=== PATIENT | female | born 1950 | race Caucasian/White ===

== ENCOUNTER 2020-05-07 07:04 | Outpatient (CLI) | payer MEDICARE, SELFPAY ==
[2020-05-07 07:40] LABS: Basophils Absolute Auto 0.1 K/mm3 (0.0-0.1); Basophils Percent Auto 1.1 % (0.2-1.2); Eosinophils Absolute Auto 0.2 K/mm3 (0-0.3); Eosinophils Percent Auto 2.1 % (0-4.4); Hematocrit 43.5 % (37.0-47.0); Hemoglobin 14.9 g/dL (12.0-15.0); Immature Granulocyte Absolute 0.01 K/mm3 (0.00-0.031); Immature Granulocyte Percent A 0.1 % (0-0.5); Lymphocytes Absolute Auto 1.25 K/mm3 (0.9-3.2); Lymphocytes Percent Auto 17.9 % (18.3-44.2); Mean Corpuscular HGB Conc 34.3 g/dl (32-36); Mean Corpuscular Hemoglobin 33.4 pg (26-34); Mean Corpuscular Volume 97.5 fl (80-100); Mean Platelet Volume 9.9 fl (7.4-10.4); Monocytes Absolute Auto 0.6 K/mm3 (0.1-0.6); Monocytes Percent Auto 9.1 % (2.6-8.5); Neutrophils Absolute Auto 4.9 K/mm3 (1.3-6.7); Neutrophils Percent Auto 69.7 % (45.5-73.1); Platelet Count Result 258 k/mm3 (150-375); Red Blood Count 4.46 M/mm3 (4.2-5.4); Red Cell Distribution Width 11.9 % (11.5-14.5)
[2020-05-07 07:52] LABS: Alanine Aminotransferase 18 U/L (4-35); Albumin Level 4.3 g/dL (3.5-5.1); Alkaline Phosphatase 62 U/L (38-126); Anion Gap 3 mmol/L (8-16); Aspartate Amino Transferase 29 U/L (14-36); Bilirubin,Total 0.6 mg/dL (0.2-1.3); Blood Urea Nitrogen 19 mg/dL (7-17); Calcium 9.4 mg/dL (8.4-10.2); Carbon Dioxide 30 mmol/L (22-30); Chloride 108 mmol/L (98-107); Cholesterol 195 mg/dL (0-200); Estimated Glomerular Filt Rate 55; Glucose 111 mg/dL (65-105); HDL Direct 57 mg/dL; Potassium 4.7 mmol/L (3.4-5.0); Sodium 141 mmol/L (137-145); Triglycerides 184 mg/dL (<150)
[2020-05-07 08:03] LABS: LDL Cholesterol Direct 80 mg/dL
[2020-05-07 08:32] LABS: Free T4 Free Thyroxine 0.87 ng/mL (0.78-2.19)
== END 2020-05-07 07:05 | disposition home or self-care (01) ==
PROVIDERS: PCP Family Medicine; Visit Provider Family Medicine
DX: R09.89 Other specified symptoms and signs involving the circulatory and respiratory systems (principal); R60.9 Edema, unspecified; I10 Essential (primary) hypertension
CPT/HCPCS: 36415; 80053; 80061; 84439; 84443; 85025

== ENCOUNTER 2020-05-30 14:59 | Outpatient (CLI) | payer MEDICARE, SELFPAY ==
--- NOTE | ~2020-05-30 | MM_ITS ---
EXAMINATION: MM screening [facility] w [facility] HISTORY: Screening mammogram TECHNIQUE: Craniocaudal and mediolateral oblique 3-D tomosynthesis images were obtained and synthetic 2-D images were generated. CAD analysis was submitted and interpreted. COMPARISON: 08/31/2017 diagnostic right mammogram 08/17/2017, 06/17/2016 bilateral digital screening mammogram examinations BREAST PARENCHYMAL COMPOSITION: There are scattered areas of fibroglandular density. FINDINGS: There is no evidence of suspicious mass, calcification, or architectural distortion to sugg est malignancy in either breast. There has been no suspicious interval change. IMPRESSION: 1. No mammographic evidence of malignancy. 2. Recommend routine screening mammography in one year. BI-RADS Category 1: Negative Reviewed, dictated and finalized at location A. 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
== END 2020-05-30 15:00 | disposition home or self-care (01) ==
LOC: ANHIMG 14:59
PROVIDERS: PCP Family Medicine; Visit Provider Family Medicine
DX: Z12.31 Encounter for screening mammogram for malignant neoplasm of breast (principal)
CPT/HCPCS: 77063; 77067

== ENCOUNTER 2020-08-24 06:59 | Outpatient (CLI) | payer MEDICARE, SELFPAY ==
[2020-08-24 07:40] LABS: Anion Gap 6 mmol/L (8-16); Blood Urea Nitrogen 17 mg/dL (7-17); Calcium 8.5 mg/dL (8.4-10.2); Carbon Dioxide 29 mmol/L (22-30); Chloride 107 mmol/L (98-107); Estimated Glomerular Filt Rate 55; Glucose 107 mg/dL (65-105); Potassium 4.5 mmol/L (3.4-5.0); Sodium 142 mmol/L (137-145)
== END 2020-08-24 07:00 | disposition home or self-care (01) ==
PROVIDERS: PCP Family Medicine; Visit Provider Physician Assistant
DX: R89.9 Unspecified abnormal finding in specimens from other organs, systems and tissues (principal)
CPT/HCPCS: 36415; 80048; 83036

== ENCOUNTER 2021-06-27 15:24 | Outpatient (CLI) | payer MEDICARE, SELFPAY ==
--- NOTE | ~2021-06-27 | MM_ITS ---
EXAMINATION: MM screening [facility] BI w trina HISTORY: Screening mammogram TECHNIQUE: Craniocaudal and mediolateral oblique 3-D tomosynthesis images were obtained and synthetic 2-D images were generated. CAD analysis was submitted and interpreted. COMPARISON: 05/30/2020, 08/31/2017, 08/17/2017, 06/17/2016 BREAST PARENCHYMAL COMPOSITION: There are scattered areas of fibroglandular density. FINDINGS: There is no evidence of suspicious mass, calcification, or architectural distortion to sugg est malignancy in either breast. There has been no suspicious interval change. IMPRESSION: 1. No mammographic evidence of malignancy. 2. Recommend routine screening mammography in one year. BI-RADS Category 1: Negative Reviewed, dictated and finalized at location A. SSIONS DIRECTOR
== END 2021-06-27 15:25 | disposition home or self-care (01) ==
LOC: ANHIMG 15:26
PROVIDERS: PCP Family Medicine; Visit Provider Family Medicine
DX: Z12.31 Encounter for screening mammogram for malignant neoplasm of breast (principal)
CPT/HCPCS: 77063; 77067

== ENCOUNTER 2021-11-25 07:27 | Outpatient (CLI) | payer MEDICARE, SELFPAY ==
--- NOTE | ~2021-11-25 | XR_ITS ---
XR lumbar spine 2-3V 11/25/2021 07:49 Indication: Back pain Procedure: 3 views of the lumbar spine Comparison: No prior studies for comparison. Findings: There is disc narrowing at L4-5 and L5-S1. There is moderate facet hypertrophy at these lev els with grade 1 degenerative spondylolisthesis at L4-5. No acute fracture or traumatic malalignment. Vertebral body heights are maintained. Impression: 1: Moderate lower lumbar spondylosis with grade 1 degenerative spondylolisthesis at L4-5. Reviewed, dictated and finalized at location A. Impression: 1: Moderate lower lumbar spondylosis with grade 1 degenerative spondylolisthesi s at L4-5.
--- NOTE | ~2021-11-25 | XR_ITS ---
XR knee RT 3V 11/25/2021 07:50 Indication: Right knee pain Procedure: 3 views right knee Comparison: 08/16/2014 Findings: There is mild-moderate tricompartment osteoarthritis of the right knee which has progressed since prior examination. No acute fracture, subluxation or dislocation. No significant joint effusio n. No foreign bodies. Impression: 1: Mild-moderate osteoarthritis of the right knee. Reviewed, dictated and finalized at location A. Impression: 1: Mild-moderate osteoarthritis of the right knee.
== END 2021-11-25 07:28 | disposition home or self-care (01) ==
PROVIDERS: PCP Family Medicine; Visit Provider Physician Assistant
DX: M54.16 Radiculopathy, lumbar region (principal); M25.561 Pain in right knee; M47.816 Spondylosis without myelopathy or radiculopathy, lumbar region; M43.16 Spondylolisthesis, lumbar region; M17.11 Unilateral primary osteoarthritis, right knee
CPT/HCPCS: 72100; 73562

== ENCOUNTER 2022-09-12 08:08 | Outpatient (CLI) | payer MEDICARE, OTHER, SELFPAY ==
[2022-09-12 19:23] LABS: Alanine Aminotransferase 19 U/L (6-35); Albumin Level 4.3 g/dL (3.5-5.1); Alkaline Phosphatase 69 U/L (38-126); Anion Gap 2 mmol/L (8-16); Aspartate Amino Transferase 28 U/L (14-36); Bilirubin,Total 0.7 mg/dL (0.2-1.3); Blood Urea Nitrogen 20 mg/dL (7-17); Calcium 9.3 mg/dL (8.4-10.2); Carbon Dioxide 30 mmol/L (22-30); Chloride 105 mmol/L (98-107); Cholesterol 200 mg/dL (0-200); Estimated Glomerular Filt Rate 49; Glucose 94 mg/dL (65-110); HDL Direct 59 mg/dL; Potassium 4.4 mmol/L (3.4-5.0); Sodium 137 mmol/L (137-145); Triglycerides 156 mg/dL (<150)
[2022-09-12 19:34] LABS: LDL Cholesterol Direct 76 mg/dL
[2022-09-12 21:15] LABS: Free T4 Free Thyroxine Reflex 1.08 ng/dL (0.78-2.19)
[2022-09-12 23:10] LABS: Total Triiodothyronine (T3) 1.57 NG/ML (0.97-1.69)
== END 2022-09-12 08:09 | disposition home or self-care (01) ==
LOC: ANHGOSHLAB 08:10
PROVIDERS: PCP Family Medicine; Visit Provider Family Medicine
DX: Z13.29 Encounter for screening for other suspected endocrine disorder (principal); Z13.220 Encounter for screening for lipoid disorders; Z13.228 Encounter for screening for other metabolic disorders; I10 Essential (primary) hypertension
CPT/HCPCS: 36415; 80053; 80061; 84439; 84443; 84480

== ENCOUNTER 2022-09-17 09:04 | Outpatient (CLI) | payer MEDICARE, OTHER, SELFPAY ==
--- NOTE | ~2022-09-17 | MM_ITS ---
EXAMINATION: MM screening [facility] BI w trina HISTORY: Screening mammogram TECHNIQUE: Craniocaudal and mediolateral oblique 3-D tomosynthesis images were obtained and synthetic 2-D images were generated. CAD analysis was submitted and interpreted. COMPARISON: 06/27/2021, 05/30/2020 bilateral screening mammogram examinations BREAST PARENCHYMAL COMPOSITION: There are scattered areas of fibroglandular density. FINDINGS: There is no evidence of suspicious mass, calcification, or architectural distortion to sugg est malignancy in either breast. There has been no suspicious interval change. IMPRESSION: 1. No mammographic evidence of malignancy. 2. Recommend routine screening mammography in one year. BI-RADS Category 1: Negative Reviewed, dictated and finalized at location A.
== END 2022-09-17 09:05 | disposition home or self-care (01) ==
LOC: ANHIMG 09:06
PROVIDERS: PCP Family Medicine; Visit Provider Family Medicine
DX: Z12.31 Encounter for screening mammogram for malignant neoplasm of breast (principal)
CPT/HCPCS: 77063; 77067

== ENCOUNTER → 2023-01-19 12:23 | Outpatient (CLI) | payer MEDICARE, OTHER, SELFPAY ==
--- NOTE | ~2023-01-19 | XR_ITS ---
XR ankle RT 2V DATE: 01/19/2023 12:45 INDICATION: Lateral right ankle pain; no injury. TECHNIQUE: AP and lateral views COMPARISON: None FINDINGS: No fracture or dislocation of the ankle or disruption of the ankle mortise. No periosteal r eaction or bone destruction. Mild plantar and posterior calcaneal enthesopathy. IMPRESSION: Mild plantar and posterior calcaneal enthesopathy Reviewed, dictated and finalized at location B.
== END ==
PROVIDERS: PCP Family Medicine; Visit Provider Nurse Practitioner Family
DX: M25.571 Pain in right ankle and joints of right foot (principal); M79.89 Other specified soft tissue disorders; M54.16 Radiculopathy, lumbar region; M77.31 Calcaneal spur, right foot
CPT/HCPCS: 73600

== ENCOUNTER 2023-03-11 12:30 | Outpatient (RCR) | payer MEDICARE, OTHER, SELFPAY ==
--- NOTE | 2023-02-11 11:03 | OPREHPOC ---
Outpatient Therapy Plan of Care This is a Multidisciplinary Plan of Care that may contain components documented by all disciplines (PT, OT, and ST.) PT Problem 1 PT Problem #1 Knowledge Deficit PT Goal 1 Goal Pt to be IND with issued HEP Target Visit 8 PT Problem 2 PT Problem #2 Pain PT Goal 1 Goal Pt to report back pain no greater than 5/10 in the last week Target Visit 8 PT Goal 2 Goal Pt to reports 50% improvement in overall symptoms Target Visit 8 PT Problem 3 PT Problem #3 Impaired Range of Motion PT Goal 1 Goal Pt to report no pain with active lumbar motion Target Visit 8 PT Goal 2 Goal Pt to demonstrate 10 deg of passive hip extension Target Visit 8 PT Problem 4 PT Problem #4 Impaired Strength PT Goal 1 Goal Pt to demonstrates RLE strength equal to LLE. Target Visit 8 PT Goal 2 Goal Pt to demonstrate 5xSTS in less than 20s. Target Visit 8
--- NOTE | 2023-02-11 11:03 | PTOPEVAL1 ---
Assessment and note entered by Hao Burk, PT, DPT Evaluation Information Assessment Status Evaluation Diagnosis lumbar radiculopathy Onset chronic Subjective Information Pt reports chronic low back that starts in her R hip and travels down the front of her thigh and goes all the way down to her ankle. She states when the pain hits she has to sit down immediately. She states most of her pain comes from prolonged standing or walking. She can walk for no longer 20 mins and stand for no longer than 10-15 mins before needing to sit. She states her pain is inconsistent. Pt reports pain as a 10/10 but declines issues sleeping d/t pain, states all she has to do is sit for a 2-3 mins. Reported Pain Level Pain Score 5: Self Report Assessment PT Clinical Summary Courtney presents to therapy today for her initial evaluation with a diagnosis of lumbar radiculopathy and a grade one spondylolisthesis at L4-L5. Today she demonstrates poor posture with increased lumbar lordosis, increase anterior pelvic tilt, tight hip flexors, and decreased core strength. She is limited in the time she can spend walking or standing. She reports tenderness to palpation throughout her R side paraspinals. Skilled physical therapy services are indicated to manage pain, improve strength and ROM, and to improve functional mobility. Plan of Care Interventions Electrical Stimulation,Gait Training,Hot Pack/Cold Pack,Manual Therapy,Mechanical Traction,Neuro Re- education,Patient/Caregiver Educati,Therapeutic Activities,Therapeutic Exercise PT Services Indicated Yes Treatment Frequency and 2x/wk for 8 visits Duration These treatments will address the objective and functional deficits as defined above. The patient will be advanced safely and appropriately in order for the patient to progress towards his/her prior level of function. Additional exercises will be introduced and as well as a comprehensive home exercise program upon discharge, if needed, ?to ensure carryover of functional gains achieved in the clinic. This treatment plan has been reviewed and agreement upon by the patient.
--- NOTE | 2023-03-11 13:21 | PTOPDC ---
Assessment and note entered by Hao Burk, PT, DPT Evaluation Information Assessment Status Discharge Diagnosis lumbar radiculopathy Onset chronic Subjective Information Pt states things seem to be improving. She states her most severe pain is still in her ankle, this worsens in standing and increases to where she has to go sit down. Pt reports about 70% improvement in her overall symptoms. Reported Pain Level Pain Score 0,2: Self Report Assessment PT Clinical Summary Courtney presents to therapy today for her progress report following 8 visits of therapy to treat her diagnosis of lumbar radiculopathy and a grade one spondylolisthesis at L4-L5. Today she demonstrates improve lumbar ROM and R hip mobility with a decreased in pain. She reports 70% improvement in her symptoms with her ankles pain being the most limiting. She states she would like to continue her HEP IND and be discharged at this time.
== END 2023-03-11 15:37 | disposition home or self-care (01) ==
LOC: ANHGOSHPT 12:30
PROVIDERS: PCP Family Medicine; Visit Provider Family Medicine
DX: M54.16 Radiculopathy, lumbar region (principal); M54.50 Low back pain, unspecified; F17.210 Nicotine dependence, cigarettes, uncomplicated
CPT/HCPCS: 97012; 97110; 97112; 97140; 97161; 97530

== ENCOUNTER 2023-04-03 07:18 | Outpatient (CLI) | payer MEDICARE, OTHER, SELFPAY ==
--- NOTE | ~2023-04-03 | MR_ITS ---
EXAMINATION: MR lumbar spine wo con DATE: 04/03/2023 08:27 INDICATION: Radiculopathy, lumbar region. TECHNIQUE: Magnetic resonance imaging (MRI) of the lumbar spine was performed without intravenous con trast. Sequences included sagittal T2-weighted FSE, sagittal T2-weighted FS FSE, sagittal T1-weighted FSE, and axial T2-weighted FSE. COMPARISON: Lumbar spine radiographs 11/25/2021 FINDINGS: There is 3 degrees dextrocurvature of lumbar spine. There is 3 mm retrolisthesis of L1 on L 2, L2 on L3, and L3 on L4. Vertebral body heights are normal. There is moderately decreased disc heig ht at L1-L2 and mildly decreased disc height at L2-L3, L3-L4, L4-L5, and L5-S1. The distal spinal cor d signal intensity is normal. The conus medullaris is at L1-L2. The following disc levels are specifi rhina discussed: L1-L2: The disc is bulging and has an annular fissure. There is mild bilateral facet joint osteoarthr itis. There is mild bilateral neural foraminal stenosis. There is mild central canal stenosis. L2-L3: The disc is bulging. There is moderate bilateral facet joint osteoarthritis. There is mild teresa ateral neural foraminal stenosis. There is mild central canal stenosis. L3-L4: The disc is bulging. There is severe bilateral facet joint osteoarthritis. There is mild right and moderate left neural foraminal stenosis. There is mild central canal stenosis. L4-L5: The disc is bulging and has an annular fissure. There is severe bilateral facet joint osteoart hritis. There is moderate bilateral neural foraminal stenosis. There is mild central canal stenosis. L5-S1: The disc is bulging and has an annular fissure. There is severe bilateral facet joint osteoart hritis. There is moderate bilateral neural foraminal stenosis. There is mild central canal stenosis. IMPRESSION: 1. Moderate lumbar spondylosis. Reviewed, dictated and finalized at location E.
== END 2023-04-03 07:19 | disposition home or self-care (01) ==
PROVIDERS: PCP Family Medicine; Visit Provider Family Medicine
DX: M54.16 Radiculopathy, lumbar region (principal); M43.06 Spondylolysis, lumbar region
CPT/HCPCS: 72148

== ENCOUNTER 2023-06-16 10:07 | Day surgery (SDC) | payer MEDICARE, OTHER, SELFPAY ==
--- NOTE | ~2023-06-16 | XR_ITS ---
EXAMINATION: XR fluoroscopy no charge INDICATION: Right L3, L4, and L5 medial block TECHNIQUE: Six intraoperative fluoroscopic images are submitted for review. Total fluoroscopic time w as 11.8 seconds. COMPARISON: None available FINDINGS: Fluoroscopic images appear to demonstrate injections of the right neural foramina at L3, L4 , and L5. Please refer to procedure note for full details. IMPRESSION: 1. Please refer to procedure note for full details. Reviewed, dictated and finalized at location L. IAL AGENT IN CHARGE
--- NOTE | 2023-06-16 05:56 | WPDHPUPDATE1 ---
History and Physical Update Update Date/Time: 06/16/23 05:56 History and Physical has been reviewed, including an updated exam of the patient. There are NO changes in the patient's condition. Risks, benefits, and alternatives have been discussed and questions answered. Patient agrees to proceed with procedure.
[2023-06-16 11:36] VITALS: BP 151/68; PULSE 72; RESP 20; TEMP 36.2; O2SAT 100
--- NOTE | 2023-06-16 12:41 | W.PM.PROC2 ---
Procedure Note - Detailed Date of Procedure 06/16/23 Pre-op Diagnosis Lumbosacral Spondylosis, chronic low back pain Post-op Diagnosis Same Procedure Performed right L3, L4, L5 medial branch/ dorsal ramus nerve blocks addressing the right L4-5, L5-S1 facet joints under fluoroscopic guidance contrast control Surgeon Kristian Masterson MD Anesthesia Local Description of Procedure INFORMED CONSENT: Risks, benefits and alternatives to the procedure were discussed in detail with the patient who expressed explicit understanding and consent to proceed. Patient was informed verbally and in written form regarding the risks associated with the procedure including the low risk of serious infection, bleeding/bruising, allergic reaction, nerve or organ injury, paralysis, procedural site pain or discomfort, worsening pain and/or mobility, failure to treat and/or disfigurement. The patient expressed explicit understanding and consent to proceed. All materials required for the procedure were available prior to procedure start. Site and side were marked prior to procedure and confirmed in the presence of the patient. PROCEDURE IN DETAIL: The patient was brought to the procedural suite and placed in the prone position. Patient was made comfortable with use of pillows under the head/chest, hips and ankles. Skin overlying the injection site on the affected side(s) was prepared broadly with ChloraPrep applicator and draped in a sterile manner. Aseptic technique was used throughout. The endplates of the vertebral bodies at the site(s) of interest were aligned in the AP view. Ipsilateral oblique angulation was utilized to optimize visualization of the intersection between the superior articulating process and transverse process at each target site. Local anesthesia was established by infiltration with approximately 5 mL of 1% lidocaine via a 1-1/2 inch 27-gauge needle. A 25-gauge 3.5 inch Quincke spinal needle was advanced until the needle tip contacted periosteum at the target site, right L3. Lateral view was utilized to confirm the appropriate placement of the needle tip just anterior to the facet line and superior to the pedicle. In the Lateral view, 0.25 mL of Omnipaque 300 contrast medium was injected after negative aspiration for CSF, blood or other bodily fluid, showing appropriate extra-articular spread of contrast without evidence of intravascular, foraminal or intrathecal placement. A 0.5 mL solution of 0.5% PF bupivacaine was injected after negative repeat aspiration. Appropriate spread of the injectate was confirmed with washout of previously injected contrast. No parasthesias were elicited. Needle was removed completely intact without difficulty. The same exact procedure was repeated for all remaining levels on the ipsilateral side, right L4, L5 medial branches/dorsal ramus, modified as necessary to accommodate for the new target location with identical findings and results and no evidence of complication. Images were saved and documented in the patient chart. Patient's skin was cleaned and sterile bandage applied. The patient tolerated the procedure well. The patient was transported to the recovery area in stable condition where they were observed for an appropriate amount of time prior to discharge, without evidence of complication. Patient was instructed on the appropriate completion of a pain diary over the next 12-24 hours. The patient was instructed to avoid excessive activity for the next 48 hours, including climbing and frequent use of stairs. Showers only for 48 hours. They were instructed not to drive or operate heavy machinery for 24 hours. They are to monitor for severe headaches, fevers, chills, night sweats, erythema/swelling at the site or any other signs of infection, bleeding/bruising, bowel or bladder changes as well as new pain, weakness or numbness in the upper or lower extremity. Should they notice these changes, they are instructed to call our office immed
[2023-06-16] MEDS: LIDOCAINE HCL 1% PF INJ 5 ML VIAL 2 ML XX (12:42)
[2023-06-16] MEDS: BUPivacaine HCL 0.5% 10 ML AMP 2 ML INFILTRATE (12:43)
[2023-06-16 12:44] VITALS: BP 156/69; PULSE 75; RESP 16; O2SAT 97
== END 2023-06-16 12:58 | disposition home or self-care (01) ==
LOC: ASC 11:19
PROVIDERS: PCP Family Medicine; Visit Provider Anesthesiology Pain Medicine
PROC: (CPT 64493; principal; 2023-06-16 12:30)
DX: M47.817 Spondylosis without myelopathy or radiculopathy, lumbosacral region (principal); M54.59 Other low back pain
CPT/HCPCS: 64493; 99199

== ENCOUNTER 2023-09-24 08:41 | Outpatient (CLI) | payer MEDICARE, OTHER, SELFPAY ==
--- NOTE | ~2023-09-24 | MM_ITS ---
EXAMINATION: MM screening [facility] BI w trina HISTORY: Screening TECHNIQUE: Craniocaudal and mediolateral oblique 3-D tomosynthesis images were obtained and synthetic 2-D images were generated. CAD analysis was submitted and interpreted. COMPARISON: Comparison to multiple prior studies sequentially, with oldest reviewed study dated 06/05. BREAST PARENCHYMAL COMPOSITION: Not dense: There are scattered areas of fibroglandular density. FINDINGS: There is no evidence of suspicious mass, calcification, or architectural distortion to sugg est malignancy in either breast. There has been no suspicious interval change. IMPRESSION: 1. No mammographic evidence of malignancy. 2. Recommend routine screening mammography in one year. BI-RADS Category 1: Negative Reviewed, dictated and finalized at location A.
== END 2023-09-24 08:42 | disposition home or self-care (01) ==
PROVIDERS: PCP Family Medicine; Visit Provider Family Medicine
DX: Z12.31 Encounter for screening mammogram for malignant neoplasm of breast (principal)
CPT/HCPCS: 77063; 77067

== ENCOUNTER 2024-06-16 07:41 | Outpatient (CLI) | payer MEDICARE, OTHER, SELFPAY ==
[2024-06-16 08:46] LABS: Basophils Absolute Auto 0.1 K/mm3 (0.0-0.1); Basophils Percent Auto 0.9 % (0.2-1.2); Eosinophils Absolute Auto 0.2 K/mm3 (0-0.3); Eosinophils Percent Auto 2.4 % (0-4.4); Hematocrit 43.7 % (37.0-47.0); Hemoglobin 14.5 g/dL (12.0-15.0); Immature Granulocyte Absolute 0.02 K/mm3 (0.00-0.031); Immature Granulocyte Percent A 0.3 % (0-0.5); Lymphocytes Absolute Auto 1.37 K/mm3 (0.9-3.2); Lymphocytes Percent Auto 17.5 % (18.3-44.2); Mean Corpuscular HGB Conc 33.2 g/dl (32-36); Mean Corpuscular Hemoglobin 32.7 pg (26-34); Mean Corpuscular Volume 98.6 fl (80-100); Mean Platelet Volume 10.3 fl (7.4-10.4); Monocytes Absolute Auto 0.6 K/mm3 (0.1-0.6); Neutrophils Absolute Auto 5.6 K/mm3 (1.3-6.7); Neutrophils Percent Auto 70.9 % (45.5-73.1); Platelet Count Result 272 k/mm3 (150-375); Red Blood Count 4.43 M/mm3 (4.2-5.4); Red Cell Distribution Width 12.8 % (11.5-14.5); White Blood Count 7.8 K/mm3 (4.5-10.0)
[2024-06-16 09:07] LABS: Add Urine Microscopic? YES; Appearance Urine Clear (Clear); Bacteria Urine None Seen /hpf; Bilirubin Urine Negative (Negative); Blood Urine Negative (Negative); Color Urine Yellow (Yellow); Glucose Urine UA Negative (Negative); Ketones Urine Negative (Negative); Leukocyte Esterase Ur 1+ LEU/UL (Negative); Need Manual Microscopic Reviewed; Nitrate Urine Negative (Negative); Non Pathogenic Casts 0-2; Protein Urine Negative (Negative); RBC Urine 0-2 /hpf (0-2); Squamous Epithelial Cell Urine Occasional /hpf (Few); Urobilinogen Urine 0.2 mg/dL (<2.0); WBC Urine 0-5 /hpf (0-3)
[2024-06-16 09:44] LABS: Alanine Aminotransferase 18 U/L (6-35); Albumin Level 4.1 g/dL (3.5-5.1); Alkaline Phosphatase 70 U/L (38-126); Anion Gap 2 mmol/L (4-12); Aspartate Amino Transferase 31 U/L (14-36); Bilirubin,Total 0.5 mg/dL (0.2-1.3); Blood Urea Nitrogen 21 mg/dL (7-17); Calcium 9.4 mg/dL (8.4-10.2); Carbon Dioxide 30 mmol/L (22-30); Chloride 109 mmol/L (98-107); Cholesterol 186 mg/dL (0-200); Estimated Glomerular Filt Rate 49; Glucose 99 mg/dL (65-110); HDL Direct 60 mg/dL; Potassium 4.6 mmol/L (3.4-5.0); Sodium 141 mmol/L (137-145); Triglycerides 148 mg/dL (<150)
[2024-06-16 09:55] LABS: LDL Cholesterol Direct 70 mg/dL
== END 2024-06-16 07:42 | disposition home or self-care (01) ==
PROVIDERS: PCP Family Medicine; Visit Provider Nurse Practitioner
DX: R53.83 Other fatigue (principal); K21.9 Gastro-esophageal reflux disease without esophagitis; F17.200 Nicotine dependence, unspecified, uncomplicated; Z13.6 Encounter for screening for cardiovascular disorders
CPT/HCPCS: 36415; 80053; 80061; 81001; 84443; 85025

== ENCOUNTER 2024-10-04 15:49 | Outpatient (CLI) | payer MEDICARE, OTHER, SELFPAY ==
--- NOTE | ~2024-10-04 | MM_ITS ---
EXAMINATION: MM screening [facility] BI w trina HISTORY: Screening TECHNIQUE: Craniocaudal and mediolateral oblique 3-D tomosynthesis images were obtained and synthetic 2-D images were generated. CAD analysis was submitted and interpreted. COMPARISON: Comparison to multiple prior studies sequentially, with oldest reviewed study dated 08/17. BREAST PARENCHYMAL COMPOSITION: Not dense: There are scattered areas of fibroglandular density. FINDINGS: There is no evidence of suspicious mass, calcification, or architectural distortion to sugg est malignancy in either breast. There has been no suspicious interval change. IMPRESSION: 1. No mammographic evidence of malignancy. 2. Recommend routine screening mammography in one year. BI-RADS Category 1: Negative Reviewed, dictated and finalized at location A.
== END 2024-10-04 15:50 | disposition home or self-care (01) ==
PROVIDERS: PCP Nurse Practitioner; Visit Provider Nurse Practitioner
DX: Z12.31 Encounter for screening mammogram for malignant neoplasm of breast (principal)
CPT/HCPCS: 77063; 77067

== ENCOUNTER 2024-11-14 09:45 | Outpatient (CLI) | payer MEDICARE, OTHER, SELFPAY ==
--- NOTE | ~2024-11-14 | DEXA_ITS ---
Bone Density Report Name: UNA ARCHIBALD Age: 74 Sex: Female Ethnicity: White Date of : 1950 Indication: postmenopausal; screening for osteoporosis; hysterectomy; Referring Provider: SID, DAMION Luu Study: Bone densitometry was performed. Exam Date: November 14, 2024 Accession number: [id number] Bone Density: Region BMD T-score Z-score Classification AP Spine(L1-L4) 1.179 1.2 3.6 Normal Femoral Neck (Left) 0.753 -0.9 1.2 Normal Total Hip (Left) 0.929 -0.1 1.7 Normal Femoral Neck (Right) 0.726 -1.1 1.0 Osteopenia Total Hip (Right) 0.906 -0.3 1.5 Normal Total Hip Mean 0.918 -0.2 1.6 Normal World Health Organization criteria for BMD impression classify patients as: Normal (T-score at or above -1.0), Osteopenia (T-score between -1.0 and -2.5), or Osteoporosis (T-score at or below -2.5). 10-year Fracture Risk(1): Major Osteoporotic Fracture 10% Hip Fracture 2.6% Reported Risk Factors: [place] (), Neck BMD=0.726, BMI=28.3, smoking (1) FRAX(R) Version 3.08. Fracture probability calculated for an untreated patient. Fracture probability may be lower if the patient has received treatment. Clinical Information Provided by Patient: Smokes Has the following medical conditions: Hysterectomy Patient maximum height was 64 Menopause Age: 45 No regular weight bearing exercise Drinks caffeinated beverages Onset of menses at age 11 Number of children 3 Impression: The patient has low bone mass, based on the Right Femoral Neck T-score. The patient has an estimated ten-year risk of hip fracture of 2.6% and an estimated ten-year risk of major fracture of 10%, based on the WHO FRAX algorithm. The patient has risk factors, including: smoking. Discussion: BONE DENSITY IS LOW AT ONE OR MORE SKELETAL SITES. This patient's lowest T-score is low at one or more skeletal sites. It meets the World Health Organization's (WHO) criteria for ?low bone mass? (T-score between -1.0 and -2.5). The patient's 10-year risk of fracture as calculated by FRAX is less than the threshold where pharmacological therapy is recommended by the National Osteoporosis Foundation (NOF). However, all treatment decisions require clinical judgment and consideration of individual patient factors, including patient preferences, comorbidities, previous drug use, risk factors not captured in the FRAX model (e.g., frailty, falls, vitamin D deficiency, increased bone turnover, interval significant decline in bone density) and possible under or overestimation of fracture risk by FRAX. The patient should follow a healthful lifestyle (good nutrition with adequate calcium and vitamin D, and appropriate weight-bearing exercise). Follow-Up: Consider repeating this study in 2 to 3 years to reassess this patient's status, or sooner if there is some new clinical indication. Reported by: NGUYEN on 11/14/2024 10:21:00 AM. Reviewed, dictated and finalized at location A.
== END 2024-11-14 09:46 | disposition home or self-care (01) ==
LOC: ANHIMG 09:47
PROVIDERS: PCP Family Medicine; Visit Provider Nurse Practitioner
DX: M85.851 Other specified disorders of bone density and structure, right thigh (principal); N95.9 Unspecified menopausal and perimenopausal disorder
CPT/HCPCS: 77080

== ENCOUNTER 2024-12-20 07:37 | Outpatient (CLI) | payer MEDICARE, OTHER, SELFPAY ==
[2024-12-20 08:26] LABS: Basophils Absolute Auto 0.1 K/mm3 (0.0-0.1); Basophils Percent Auto 1.1 % (0.2-1.2); Eosinophils Absolute Auto 0.2 K/mm3 (0-0.3); Eosinophils Percent Auto 2.5 % (0-4.4); Hematocrit 45.4 % (37.0-47.0); Hemoglobin 14.7 g/dL (12.0-15.0); Immature Granulocyte Absolute 0.07 K/mm3 (0.00-0.031); Lymphocytes Percent Auto 19.4 % (18.3-44.2); Mean Corpuscular HGB Conc 32.4 g/dl (32-36); Mean Corpuscular Hemoglobin 32.4 pg (26-34); Mean Platelet Volume 10.1 fl (7.4-10.4); Monocytes Absolute Auto 0.6 K/mm3 (0.1-0.6); Monocytes Percent Auto 7.8 % (2.6-8.5); Neutrophils Absolute Auto 4.9 K/mm3 (1.3-6.7); Neutrophils Percent Auto 68.2 % (45.5-73.1); Platelet Count Result 298 k/mm3 (150-375); Red Blood Count 4.54 M/mm3 (4.2-5.4); Red Cell Distribution Width 13.2 % (11.5-14.5); White Blood Count 7.2 K/mm3 (4.5-10.0)
[2024-12-20 08:36] LABS: Alanine Aminotransferase 18 U/L (6-35); Albumin Level 4.2 g/dL (3.5-5.1); Alkaline Phosphatase 70 U/L (38-126); Anion Gap 5 mmol/L (4-12); Aspartate Amino Transferase 31 U/L (14-36); Bilirubin,Total 0.4 mg/dL (0.2-1.3); Blood Urea Nitrogen 18 mg/dL (7-17); Calcium 9.6 mg/dL (8.4-10.2); Carbon Dioxide 28 mmol/L (22-30); Chloride 109 mmol/L (98-107); Cholesterol 198 mg/dL (0-200); Estimated Glomerular Filt Rate 47; Glucose 107 mg/dL (65-110); HDL Direct 63 mg/dL; Potassium 4.9 mmol/L (3.4-5.0); Sodium 142 mmol/L (137-145); Total Protein 7.6 g/dL (6.3-8.2); Triglycerides 143 mg/dL (<150)
[2024-12-20 11:04] LABS: LDL Cholesterol Direct 68 mg/dL
[2024-12-20 11:46] LABS: Add Urine Microscopic? YES; Appearance Urine Clear (Clear); Bacteria Urine None Seen /hpf; Bilirubin Urine Negative (Negative); Blood Urine Negative (Negative); Color Urine Yellow (Yellow); Glucose Urine UA Negative (Negative); Ketones Urine Trace mg/dL (Negative); Leukocyte Esterase Ur 1+ LEU/UL (Negative); Mucus Urine Present /lpf; Need Manual Microscopic Reviewed; Nitrate Urine Negative (Negative); Non Pathogenic Casts 0-2; Protein Urine Negative (Negative); RBC Urine 0-2 /hpf (0-2); Specific Grav Ur 1.022 (1.001-1.035); Squamous Epithelial Cell Urine Occasional /hpf (Few); Urobilinogen Urine 0.2 mg/dL (<2.0); WBC Urine 0-5 /hpf (0-3)
== END 2024-12-20 07:38 | disposition home or self-care (01) ==
LOC: ANHLAB 07:41
PROVIDERS: PCP Family Medicine; Visit Provider Nurse Practitioner
DX: K21.9 Gastro-esophageal reflux disease without esophagitis (principal); N28.9 Disorder of kidney and ureter, unspecified; R53.81 Other malaise; R79.89 Other specified abnormal findings of blood chemistry
CPT/HCPCS: 36415; 80053; 80061; 81001; 84443; 85025; 87086

== ENCOUNTER 2025-06-02 08:03 | Outpatient (CLI) | payer MEDICARE, OTHER, SELFPAY ==
[2025-06-03 18:53] LABS: Hematocrit 46.4 % (37.0-47.0); Hemoglobin 15.1 g/dL (12.0-15.0); Immature Granulocyte Percent A 0.2 % (0-0.5); Lymphocytes Absolute Auto 1.97 K/mm3 (0.9-3.2); Mean Corpuscular HGB Conc 32.5 g/dl (32-36); Mean Corpuscular Hemoglobin 32.1 pg (26-34); Mean Corpuscular Volume 98.5 fl (80-100); Nucleated Red Blood Cells Absolute Auto 0.000 K/mm3 (0.0-0.012); Nucleated Red Blood Cells Perc 0.0 % (0.0-0.2); Platelet Count Result 280 k/mm3 (150-375); Red Blood Count 4.71 M/mm3 (4.2-5.4); White Blood Count 8.8 K/mm3 (4.5-10.0)
[2025-06-03 19:09] LABS: Alanine Aminotransferase 19 U/L (6-35); Albumin Level 4.3 g/dL (3.5-5.1); Alkaline Phosphatase 76 U/L (38-126); Anion Gap 5 mmol/L (4-12); Aspartate Amino Transferase 33 U/L (14-36); Bilirubin,Total 0.6 mg/dL (0.2-1.3); Blood Urea Nitrogen 17 mg/dL (7-17); Calcium 10.4 mg/dL (8.4-10.2); Carbon Dioxide 28 mmol/L (22-30); Chloride 106 mmol/L (98-107); Cholesterol 208 mg/dL (0-200); Estimated Glomerular Filt Rate 45; Glucose 83 mg/dL (65-110); HDL Direct 58 mg/dL; Potassium 4.4 mmol/L (3.4-5.0); Sodium 139 mmol/L (137-145); Total Protein 7.6 g/dL (6.3-8.2); Triglycerides 200 mg/dL (<150)
[2025-06-03 19:40] LABS: Add Urine Microscopic? YES; Appearance Urine Clear (Clear); Glucose Urine UA Negative (Negative); Leukocyte Esterase Ur 1+ LEU/UL (Negative); Need Manual Microscopic Reviewed; Nitrate Urine Negative (Negative); Non Pathogenic Casts 0-2; Specific Grav Ur 1.016 (1.001-1.035)
[2025-06-03 19:44] LABS: Thyroid Stimulating Hormone 4.120 uIU/mL (0.465-4.680)
== END 2025-06-02 08:04 | disposition home or self-care (01) ==
LOC: ANHGOSHLAB 08:05
PROVIDERS: PCP Family Medicine; Visit Provider Nurse Practitioner
DX: Z00.00 Encounter for general adult medical examination without abnormal findings (principal); Z13.820 Encounter for screening for osteoporosis; K21.9 Gastro-esophageal reflux disease without esophagitis
CPT/HCPCS: 36415; 80053; 80061; 81001; 84443; 85025; 87086; 87186